=== PATIENT | female | born 1935 | race Caucasian/White ===

== ENCOUNTER 2019-11-17 13:03 | Outpatient (RCR) | payer MEDICARE, OTHER, SELFPAY ==
[2019-11-17 13:29] VITALS: BP 139/68; PULSE 105; RESP 16; TEMP 36.6; BMI 21.1
--- NOTE | 2019-11-17 15:20 | HP.PCM_ITS ---
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: Acute Current Visit: Yes Code(s): L97.522 - Non-pressure chronic ulcer of other part of left foot with fat layer exposed (2) Burn of left foot Status: Acute Current Visit: Yes Code(s): T25.022A - Burn of unspecified degree of left foot, initial encounter (3) Peripheral vascular disease Status: Acute Current Visit: Yes Code(s): I73.9 - Peripheral vascular disease, unspecified (4) Venous insufficiency Status: Acute Current Visit: Yes Code(s): I87.2 - Venous insufficiency (chronic) (peripheral) (5) Left leg pain Status: Acute Current Visit: Yes Code(s): M79.605 - Pain in left leg History of Present Illness Date of Service: 11/17/19 Chief Complaint: Left foot burn wound History of Wound: This 84-year-old female with multiple comorbidities was seen today for left foot wound. She relates she is failed half water while she is making macaroni and cheese on her foot approximately 10 days ago. She was referred today by [facility] medicine. She has applied aloe and Neosporin and relates her foot is now nichols and green. Prior to this recent injury she reports that she had ongoing leg cramping with walking short distances and rest pain to the feet. She also has had numbness to her lower extremities. It is noted she has kidney disease and she is not aware if she has any diabetic related diagnoses. She denies other prior history of ulcers. She is with her daughter today. Her pain is rated as a moderate sharp and constant discomfort. Medications: Oxycodone, fluoxetine, trimethoprim, lisinopril hydrochlorothiazide, Prilosec, vitamin D, aspirin. Allergies: Codeine phosphate Past Medical History Past Medical History: History of syncope, polyarticular arthritis, chronic pain, urinary incontinence, knee pain, ataxia chronic, seborrheic keratosis, overweight, depression, chronic kidney disease, osteoarthritis of the lumbar spine, low back pain, history of vitamin D deficiency, hypertension, prior smo ker that quit in the Lives: With Family Smoking Status: Former smoker - quit in Tobacco Use: Non-smoker Review of Systems Constitutional: Reports: Fatigue. Denies: Chills, Fever Cardiovascular: Reports: Claudication. Denies: Chest Pain Respiratory: Denies: Cough, Shortness of Breath Gastrointestinal: Denies: Nausea, Vomiting Genitourinary: Reports: Incontinence Musculoskeletal: Reports: Foot Pain, Leg Pain Skin: Reports: Dryness, Skin Changes, Wounds Neurological: Reports: Balance problems, Incoordination, Numbness Psychiatric: Reports: Depression - Physical Exam Vital Signs Temp Pulse Resp BP 97.8 F 105 H 16 139/68 H 11/17/19 13:29 11/17/19 13:29 11/17/19 13:29 11/17/19 13:29 General: Alert, Oriented x3, Cooperative, No apparent distress HEENT: Atraumatic Extremities: No cyanosis, Capillary Refill Less than 3 Seconds - All digits bilateral, No Calf Tenderness - Negative Blake and Winn sign bilateral, Diminished Peripheral Pulses - Nonpalpable bilateral DP pulses and nonpalpable right PT pulse, 1 out of 4 PT pulse left, - - Temperature gradient is equal with light touch the toes sending back to the heels Skin: Ulcer/ Wound - There is a skin discontinuity with necrotic To the dorsal midfoot and also to the dorsal fifth toe with adjacent blistering and improved epithelial layer. There is no bogginess or fluctuance on palpation. Upon debridement of this eschar necrotic There is underlying fibrous tissue with sparse granulation tissue. There is no purulence, erythema, streaking, odor not ed. There is ruborous erythema type changes that is noted while dangling the limbs in the dependent position. The compartments of the left lower extremity remain soft to palpate. Palpation of the ulcer is very painful. There is no alec gangrene Wound Measurements and Assessment WC - Nurse 1 - General Ulcer Measurement Start: 11/17/19 13:29 Freq: Status: Active Protocol: Activity Type Activity Date Activity User E-Sign Co-Sign Detail Recorded Client Recorded Date Recorded By Document 11/17/19 13:29 [address] [id number] 11/17/19 13:45 PL 11/17/19 13:29 Wound Center Nurse 1 [Ulcer Assessment] #2 Left 5th toe Dorsal -Combined with other wound No -Current Size (cm) - Length 1.5 -Current Size (cm) - Width 1.0 -Current Size (cm) - Depth 0.1 -Total Square Cm 1.50 -Date of Last Picture (Recall this 11/17/19 field) -Photo Taken Yes -Epithelialization None Present -Tunneling No -Undermining/Tunneling No -Circular Undermining No -Classification - Thickness Unclassifiable (Eschar Covered ) -Exudate Amt Small -Exudate Type Serosanguineous -Wound Margin Indistinct, Non -Visible -Granulation Amt None Present (0 %) -Slough/Fibrin Yes -Necrosis Amt Large (67-100%) -Necrotic Tissue Type Eschar -Texture (Lydia-wound Skin Appearance) Excoriation -Moisture (Lydia-wound Skin Appearance No Abnormality ) -Color (Lydia-wound Skin Appearance) Ecchymosis -Temperature (Lydia-wound Skin No Abnormality Appearance) (Pt Warm) -Tenderness on Palpation (Lydia-wound Yes Skin Appearance) -Ulcer Cleansing Rinsed/ Irrigated with Saline -Foul Odor after Cleansing No -Anesthetic Used 4% Lidocaine Solution #1 Left Dorsal Foot -Combined with other wound No -Current Size (cm) - Length 3.0 -Current Size (cm) - Width 4.5 -Current Size (cm) - Depth 0.1 -Total Square Cm 13.50 -Date of Last Picture (Recall this 11/17/19 field) -Photo Taken Yes -Epithelialization None Present -Tunneling No -Undermining/Tunneling No -Circular Undermining No -Classification - Thickness Unclassifiable (Eschar Covered ) -Exudate Amt Medium -Exudate Type Serosanguineous -Wound Margin Indistinct, Non -Visible -Granulation Amt None Present (0 %) -Slough/Fibrin Yes -Necrosis Amt Large (67-100%) -Necrotic Tissue Type Eschar -Texture (Lydia-wound Skin Appearance) Excoriation -Moisture (Lydia-wound Skin Appearance No Abnormality ) -Color (Lydia-wound Skin Appearance) Erythema -Temperature (Lydia-wound Skin No Abnormality Appearance) (Pt Warm) -Tenderness on Palpation (Lydia-wound Yes Skin Appearance) -Ulcer Cleansing Rinsed/ Irrigated with Saline -Anesthetic Used 4% Lidocaine Solution ANGELA - Nurse 2 - General Ulcer CM Notes Start: 11/17/19 13:29 Freq: Status: Active Protocol: Activity Type Activity Date Activity User E-Sign Co-Sign Detail Recorded Client Recorded Date Recorded By Document 11/17/19 14:29 [email or web address] [id number] 11/17/19 14:53 [email or web address] 11/17/19 14:29 Wound Center Nurse 2 [Procedure/Treatment] #2 Left 5th toe Dorsal -Time 14:30 -Correct Patient Yes -Correct Side, Site, Position Yes -Correct Procedure Yes -Procedure Performed Yes -Type of Procedure Debridement -Clinical Debridement Subcutaneous -Post Debridement Size (cm) - Length 1.5 -Post Debridement Size (cm) - Width 1.1 -Post Debridement Size (cm) - Depth 0.1 -Total Square Cm 1.65 -Wound/Ulcer Outcome Not Healed -Ulcer Cleansing Rinsed/ Irrigated with Saline -Foul Odor after Cleansing No -Bioengineered Tissue No -Bleeding Controlled with Pressure -Offloading No -Treatment Response Procedure Tolerated Well #1 Left Dorsal Foot -Time 14:30 -Correct Patient Yes -Correct Side, Site, Position Yes -Correct Procedure Yes -Procedure Performed Yes -Type of Procedure Debridement -Clinical Debridement Subcutaneous -Post Debridement Size (cm) - Length 4.0 -Post Debridement Size (cm) - Width 5.3 -Post Debridement Size (cm) - Depth 0.1 -Total Square Cm 21.20 -Wound/Ulcer Outcome Not Healed -Ulcer Cleansing Rinsed/ Irrigated with Saline -Foul Odor after Cleansing No -Bioengineered Tissue No -Bleeding Controlled with Pressure -Offloading No -Treatment Response Procedure Tolerated Well [See Physician Procedure note for Specifics] Pain Scale: 0-10 Numeric [Pain] -Is Patient Pain Free? Yes Musculoskeletal: No Muscle Wasting, Tenderness Neurological: - - Lack of abnormal sensation Psych/Mental Status: Normal Affect, Appropriate Debridement Note Post-Debridement Measurements/Treatment WC - Nurse 2 - General Ulcer CM Notes Start: 11/17/19 13:29 Freq: Status: Active Protocol: Activity Type Activity Date Activity User E-Sign Co-Sign Detail Recorded Client Recorded Date Recorded By Document 11/17/19 14:29 [id number] 11/17/19 14:53 JASMYNE 11/17/19 14:29 Wound Center Nurse 2 #2 Left 5th toe Dorsal -Time 14:30 -Correct Patient Yes -Correct Side, Site, Position Yes -Correct Procedure Yes -Procedure Performed Yes -Type of Procedure Debridement -Clinical Debridement Subcutaneous -Post Debridement Size (cm) - Length 1.5 -Post Debridement Size (cm) - Width 1.1 -Post Debridement Size (cm) - Depth 0.1 -Total Square Cm 1.65 -Wound/Ulcer Outcome Not Healed -Ulcer Cleansing Rinsed/ Irrigated with Saline -Foul Odor after Cleansing No -Bioengineered Tissue No -Bleeding Controlled with Pressure -Offloading No -Treatment Response Procedure Tolerated Well #1 Left Dorsal Foot -Time 14:30 -Correct Patient Yes -Correct Side, Site, Position Yes -Correct Procedure Yes -Procedure Performed Yes -Type of Procedure Debridement -Clinical Debridement Subcutaneous -Post Debridement Size (cm) - Length 4.0 -Post Debridement Size (cm) - Width 5.3 -Post Debridement Size (cm) - Depth 0.1 -Total Square Cm 21.20 -Wound/Ulcer Outcome Not Healed -Ulcer Cleansing Rinsed/ Irrigated with Saline -Foul Odor after Cleansing No -Bioengineered Tissue No -Bleeding Controlled with Pressure -Offloading No -Treatment Response Procedure Tolerated Well Pain Scale: 0-10 Numeric Is Patient Pain Free? Yes Wound debrided: dorsal fifth toe Laterality: Left Type of Debridement: Excisional debridement Anesthesia Used: 5% Lidocaine Gel Depth: in the subcutaneous layer Percentage of wound debrided: 100 Instrument Used: #15 blade, Forceps Tissue Removed: fibrous, devitalized subcutaneous, biofilm, slough Severity: Fat Layer Exposed Amount of bleeding with debridement: Mild Bleeding Controlled with: Pressure Patient tolerated procedure well - Additional Wound Wound debrided: dorsal foot Laterality: Left Type of Debridement: Excisional debridement Anesthesia Used: 5% Lidocaine Gel Depth: in the subcutaneous layer Percentage of wound debrided: 100 Instrument Used: #15 blade Tissue Removed: fibrous, devitalized subcutaneous, biofilm, slough Severity: Fat Layer Exposed Amount of bleeding with debridement: Mild Bleeding Controlled with: Pressure Patient tolerated procedure: Patient tolerated procedure well Assessment/Plan Active Problems Ulcer of left foot with fat layer exposed (Acute) Burn of left foot (Acute) Peripheral vascular disease (Acute) Venous insufficiency (Acute) Left leg pain (Acute) Assessment: Left foot ulcer with fat layer exposed secondary to recent burn. Peripheral vascular disease work-up in process. Venous insufficiency work-up in process. Left lower extremity pain. Other comorbidities include chronic kidney disease. Diabetes work-up in process Plan: I reviewed and discussed her case today and reviewed her note from Reina Enciso, physician behavioral assistant in which she was referred earlier today. Her ulcer was debrided as noted in the clinical panel. She was advised to change the dressing daily with hydrogel, Adaptic, and gauze. A prescription for Santyl was provided. The purpose of the enzymatic debrider was described and she will continue the hydrogel until she is able to obtain this other prescription. To offload the ulcer by avoiding shoes that press on this site or shoes with straps that press on this site. She was advised to alternate between elevation and dangling the limb for both edema management and also pain management. I am concerned she has peripheral vascular disease due to her lack of pulses and the dysvascular appearance of her left lower extremity. Noninvasive vascular studies were ordered. I also ordered venous Doppler with reflux evaluation. We will help her schedule these. I recommend baseline laboratory work to better understand her medical status including CBC, CMP, and hemoglobin A1c for diabetic screening. The ulcer was also cultured and this was sent for aerobic, anaerobic, and MRSA PCR. This was obtained after debridement and irrigation. These results are pending. I also recommend a foot x-ray and an order was provided at this time as well. We discussed the etiology of the ulcer and the comprehensive wound plan parameters. I recommend she follows up on a weekly basis for serial debridements. Additional compression will be recommended after I review her noninvasive vascular studies. At this time will be addressed with intermittent elevation. We will also review nutritional optimization to promo te faster healing at her follow-up visit. I answered all of her questions. -----. 2020 MYRTLE: Reviewed today: Medication allergy reviewed and reconciled. Reviewed 11-17-2019 she is a current nontobacco user. She denies that she has a living will on file, she has had a prior pneumonia vaccination, she relates her influenza immunization was updated this current season. She relates she has fallen more than 2 times this past year and has significant balance loss. We reviewed the many etiologies of this and I will bring her an educational exercise and balance prevention handout program for her to review. For BMI is 21.1 which is within the normal range. Her blood pressure was 139/68 and is noted her systolic level is elevated. I recommend that she follows up with her primary care physician. She was advised on diet and activity that can also help promote wound healing and improved health status.
[2019-11-18 19:20] LABS: M R Staph aureus DNA By PCR Negative (Negative); Probe Check PASS; Specimen Processing Control PASS; Staph aureus DNA By PCR POSITIVE (Negative)
== END 2019-11-21 23:59 ==
LOC: WC 13:03
PROVIDERS: Referring Provider Podiatrist; Visit Provider Podiatrist
DX: L97.522 Non-pressure chronic ulcer of other part of left foot with fat layer exposed (principal); T25.222A Burn of second degree of left foot, initial encounter; X12.XXXA Contact with other hot fluids, initial encounter; Y93.G3 Activity, cooking and baking; I87.2 Venous insufficiency (chronic) (peripheral); I12.9 Hypertensive chronic kidney disease with stage 1 through stage 4 chronic kidney disease, or unspecified chronic kidney disease; N18.9 Chronic kidney disease, unspecified; M47.896 Other spondylosis, lumbar region; Z87.891 Personal history of nicotine dependence; E11.22 Type 2 diabetes mellitus with diabetic chronic kidney disease; E11.51 Type 2 diabetes mellitus with diabetic peripheral angiopathy without gangrene
CPT/HCPCS: 11042; 87070; 87075; 87077; 87186; 87205; 87640; 99203; G0463

== ENCOUNTER 2019-12-15 14:00 | Outpatient (RCR) | payer MEDICARE, OTHER, SELFPAY ==
[2019-11-22 00:36] VITALS: BP 139/68; PULSE 105; RESP 16; TEMP 36.6
[2019-11-24 14:01] VITALS: BP 164/85; PULSE 114; RESP 18; TEMP 36.3; BMI 21.1
--- NOTE | 2019-11-24 15:09 | PCM.WC.PN ---
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: Acute Current Visit: Yes Code(s): L97.522 - Non-pressure chronic ulcer of other part of left foot with fat layer exposed (2) Burn of left foot Status: Acute Current Visit: Yes Qualifiers: Encounter type: subsequent encounter Code(s): T25.022A - Burn of unspecified degree of left foot, initial encounter (3) Peripheral vascular disease Status: Suspected Current Visit: Yes Code(s): I73.9 - Peripheral vascular disease, unspecified (4) Venous insufficiency Status: Suspected Current Visit: Yes Code(s): I87.2 - Venous insufficiency (chronic) (peripheral) (5) Left leg pain Status: Acute Current Visit: Yes Code(s): M79.605 - Pain in left leg Type of Wound Date of Service: 11/24/19 Chief Complaint: Left foot burn wound History of Wound: This 84-year-old female with multiple comorbidities was seen today for left foot wound. She denies fever, chill, nausea, vomiting. She relates her foot is looking better. She asked about her culture results. She did not get her vascular studies completed yet. I do not see that she had her lab work or x-ray completed as advised yet. Progress of Wound: Stable and improving - Physical Exam Vital Signs Temp Pulse Resp BP 97.3 F L 114 H 18 164/85 H 11/24/19 14:01 11/24/19 14:01 11/24/19 14:11/24/19 14:01 General: Alert, Oriented x3, Cooperative, No apparent distress HEENT: Atraumatic Extremities: No cyanosis, Capillary Refill Less than 3 Seconds, No Calf Tenderness, Diminished Peripheral Pulses, Edema - Mild lower extremity Skin: Ulcer/ Wound - No purulence, erythema, streaking, odor, infection. The adjacent skin is hairless and atrophic. There is decreased fibrous and eschar tissue in the ulcer bed. There is no exposed tendon or bone. The adjacent skin is hairless and atrophic. There is no bogginess or fluctuance Wound Measurements and Assessment WC - Nurse 1 - General Ulcer Measurement Start: 11/24/19 14:01 Freq: Status: Active Protocol: Activity Type Activity Date Activity User E-Sign Co-Sign Detail Recorded Client Recorded Date Recorded By Document 11/24/19 14:01 RB [id number] 11/24/19 14:14 11/24/19 14:01 Wound Center Nurse 1 [Ulcer Assessment] #2 Left 5th toe Dorsal -Combined with other wound No -Current Size (cm) - Length 1.3 -Current Size (cm) - Width 0.9 -Current Size (cm) - Depth 0.1 -Total Square Cm 1.17 -Tunneling No -Undermining/Tunneling No -Circular Undermining No -Exudate Amt Small -Exudate Type Serosanguineous -Wound Margin Flat & Intact -Granulation Amt Medium (34-66%) -Granulation Quality [place] -Slough/Fibrin Yes -Necrosis Amt Small (1-33%) -Necrotic Tissue Type Adherent Slough -Structure Exposed N/A -Texture (Lydia-wound Skin Appearance) Assessed, Scarring -Moisture (Lydia-wound Skin Appearance Assessed ) -Color (Lydia-wound Skin Appearance) Assessed -Temperature (Lydia-wound Skin No Abnormality Appearance) (Pt Warm) -Tenderness on Palpation (Lydia-wound No Skin Appearance) -Ulcer Cleansing Wound Cleanser -Foul Odor after Cleansing No -Anesthetic Used 4% Lidocaine Solution #1 Left Dorsal Foot -Combined with other wound No -Current Size (cm) - Length 4.5 -Current Size (cm) - Width 4.5 -Current Size (cm) - Depth 0.2 -Total Square Cm 20.25 -Tunneling No -Undermining/Tunneling No -Circular Undermining No -Exudate Amt Medium -Exudate Type Serosanguineous -Wound Margin Flat & Intact -Granulation Amt Medium (34-66%) -Granulation Quality [place] -Slough/Fibrin Yes -Necrosis Amt Medium (34-66%) -Necrotic Tissue Type Adherent Slough -Structure Exposed N/A -Texture (Lydia-wound Skin Appearance) Assessed, Scarring -Moisture (Lydia-wound Skin Appearance Assessed ) -Color (Lydia-wound Skin Appearance) Assessed -Temperature (Lydia-wound Skin No Abnormality Appearance) (Pt Warm) -Tenderness on Palpation (Lydia-wound No Skin Appearance) -Ulcer Cleansing Wound Cleanser -Foul Odor after Cleansing No -Anesthetic Used 4% Lidocaine Solution Musculoskeletal: No Tenderness to Palpation of Joints or Extremities, Muscle Wasting Neurological: Sensory exam intact to light touch and pain Psych/Mental Status: Normal Affect, Appropriate Debridement Note Wound debrided: dorsal foot Laterality: Left Type of Debridement: Excisional debridement Anesthesia Used: 5% Lidocaine Gel Depth: in the subcutaneous layer Percentage of wound debrided: 100 Instrument Used: #15 blade Tissue Removed: fibrous, devitalized subcutaneous, biofilm, slough Severity: Fat Layer Exposed Amount of bleeding with debridement: Mild Bleeding Controlled with: Pressure Patient tolerated procedure well Assessment/Plan Active Problems Ulcer of left foot with fat layer exposed (Acute) Burn of left foot (Acute) Left leg pain (Acute) Assessment: Left foot ulcer with fat layer exposed secondary to recent burn. Peripheral vascular disease work-up in process. Venous insufficiency work-up in process. Left lower extremity pain. Other comorbidities include chronic kidney disease. Diabetes work-up in process Plan: I reviewed and discussed her case today. She was reassured there are no local signs of infection I do not recommend additional antibiotics today. She was advised to change the dressing daily with hydrogel, Adaptic, and gauze. A prescription for Santyl was provided and she was advised to continue. The purpose of the enzymatic debrider was described and she will continue the hydrogel until she is able to obtain this other prescription. To offload the ulcer by avoiding shoes that press on this site or shoes with straps that press on this site. She was advised to alternate between elevation and dangling the limb for both edema management and also pain management. I am concerned she has peripheral vascular disease due to her lack of pulses and the dysvascular appearance of her left lower extremity. Noninvasive vascular studies were ordered. I also ordered venous Doppler with reflux evaluation. We will help her reschedule these. I recommend baseline laboratory work to better understand her medical status including CBC, CMP, and hemoglobin A1c for diabetic screening. The ulcer was also cultured and this was sent for aerobic, anaerobic, and MRSA PCR. This was MRSA negative. She is demonstrating growth including Staphylococcus aureus and gram-positive cocci, enterococcus species. I also recommend a foot x-ray and an order was provided previously. We discussed the etiology of the ulcer and the comprehensive wound plan parameters. I recommend she follows up on a weekly basis for serial debridements. Additional compression will be recommended after I review her noninvasive vascular studies. At this time will be addressed with intermittent elevation. We will also review nutritional optimization to promote faster healing at her follow-up visit. I answered all of her questions. -----. 2020 [place]CRA: Reviewed today: Medication allergy reviewed and reconciled. Reviewed 11-17-2019 she is a current nontobacco user. She denies that she has a living will on file, she has had a prior pneumonia vaccination, she relates her influenza immunization was updated this current season. She relates she has fallen more than 2 times this past year and has significant balance loss. We reviewed the many etiologies of this and I will bring her an educational exercise and balance prevention handout program for her to review. For BMI is 21.1 which is within the normal range. Her blood pressure was 139/68 and is noted her systolic level is elevated. I recommend that she follows up with her primary care physician. She was advised on diet and activity that can also help promote wound healing and improved health status.
--- NOTE | 2019-11-25 12:38 | VDLE_ITS ---
Reason For Study: venous insufficiency RIGHT LEFT CFV is compressible, spontaneous, phasic, CFV is compressible, spontaneous, phasic, competent and demonstrates normal competent, and demonstrates normal augmentation. augmentation. FV is compressible, spontaneous, phasic, FV is compressible, spontaneous, phasic, competent and demonstrates normal competent and demonstrates normal augmentation. augmentation. POP V is compressible, spontaneous, phasic, POP V is compressible, spontaneous, phasic, competent and demonstrates normal competent and demonstrates normal augmentation. augmentation. T/P Trunk is compressible. T/P Trunk is compressible. PTV is compressible. PTV is compressible. RT PerV is compressible. LT PerV is compressible. SFJ is competent and measures .51 x .58 cm. SFJ is competent and measures .58 x .58 cm. GSV proximal thigh measures .16 x .19 cm. GSV proximal thigh measures .25 x .29 cm. GSV is competent throughout. GSV is competent throughout. SSV proximal calf is competent and SSV proximal calf is competent and measures .2 x .2 cm. measures .14 x .18 cm. Procedure Exam performed in department. The exam was diagnostic. Interpretation Summary Deep veins of the lower extremities are bilaterally patent and compressible segmentally. There is no evidence of deep vein thrombosis on either side. Valvular competence appears intact within the proximal deep venous systems bilaterally. The great saphenous veins appear bilaterally patent and compressible segmentally. Sapheno-femoral junctions are bilaterally competent . Valvular competence appears to be intact segmentally within the great saphenous veins bilaterally. Small saphenous veins are patent and competent bilaterally. Ordering Physician: Maria M Pearce Performed By: Forrest Leigh, RVT
--- NOTE | 2019-11-25 12:39 | ART_ITS ---
Reason For Study: PVD Procedure A bilateral lower extremity continuous wave Doppler with analog waveform analysis,segmental pressures,and ankle brachial indexes without exercise. Left Segmental Pressures Left brachial= 155mmHg. Left posterior tibial artery = 161mmHg. Left dorsalis pedis artery = 151mmHg. Left digit = 76 mmHg. The left posterior tibial artery waveforms are biphasic. The left dorsalis pedis waveforms are triphasic. Right Segmental Pressures Right brachial= 156mmHg. Right calf = 167mmHg. Right posterior tibial artery = 145mmHg. Right dorsalis pedis artery = 146mmHg. Right digit = 56 mmHg. The right posterior tibial artery waveforms are biphasic. The right dorsalis pedis waveforms are triphasic. Indices The right ankle brachial index by the dorsalis pedis is .94. The right ankle brachial index by the posterior tibial artery is .93. The right digital-brachial index is .35. The left ankle brachial index by the posterior tibial artery is 1.03. The left ankle brachial index by the dorsalis pedis is .97. The left digital-brachial index is .49. Interpretation Summary Biphasic and triphasic Doppler waveforms are noted at ankle level bilaterally. Pulse-volume recording waveform amplitudes are diminished at ankle and digital level bilaterally. Resting ankle- brachial indices are normal bilaterally. Digital-brachial indices are moderately diminished bilaterally. Arterial flow appears normal at ankle level bilaterally. There is evidence of moderate, distal, small-vessel arterial occlusive disease at digital level bilaterally. Ordering Physician: Maria M Pearce Performed By: DYLAN AVELAR Damian
[2019-12-01 13:08] VITALS: BP 165/68; PULSE 84; RESP 16; TEMP 35.8; BMI 21.1
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
[2019-12-15 13:55] VITALS: BP 175/81; PULSE 101; RESP 16; TEMP 35.9; BMI 21.1
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
== END 2019-12-21 23:59 ==
LOC: WC 14:00
PROVIDERS: Referring Provider Podiatrist; Visit Provider Podiatrist
DX: I73.9 Peripheral vascular disease, unspecified (principal); L97.522 Non-pressure chronic ulcer of other part of left foot with fat layer exposed; I87.2 Venous insufficiency (chronic) (peripheral); T25.022A Burn of unspecified degree of left foot, initial encounter; X08.8XXA Exposure to other specified smoke, fire and flames, initial encounter; M79.605 Pain in left leg
CPT/HCPCS: 11042; 11045; 93923; 93970

== ENCOUNTER 2020-01-12 13:00 | Outpatient (RCR) | payer MEDICARE, OTHER, SELFPAY ==
[2019-12-22 00:32] VITALS: BP 175/81; PULSE 101; RESP 16; TEMP 35.9
[2019-12-22 13:09] VITALS: BP 173/60; PULSE 82; RESP 20; TEMP 36; BMI 21.1
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
[2020-01-05 13:33] VITALS: BP 155/81; PULSE 86; RESP 18; TEMP 35.8; BMI 21.1
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
[2020-01-12 13:19] VITALS: BP 165/94; PULSE 91; RESP 18; TEMP 36.4; BMI 21.1
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
== END 2020-01-21 23:59 ==
LOC: WC 13:00
PROVIDERS: Referring Provider Podiatrist; Visit Provider Podiatrist
DX: L97.522 Non-pressure chronic ulcer of other part of left foot with fat layer exposed (principal); T25.022A Burn of unspecified degree of left foot, initial encounter; M79.605 Pain in left leg; N18.9 Chronic kidney disease, unspecified; X08.8XXA Exposure to other specified smoke, fire and flames, initial encounter
CPT/HCPCS: 11042; 99212; G0463